=== PATIENT | female | born 1970 | race African-American/Black ===

== ENCOUNTER 2016-04-09 17:19 | Emergency (ER) | payer OTHER ==
[~2016-04-09] VITALS: Ht 170.2 cm; Wt 131.1 kg
[2016-04-09 19:38] LABS: PLATELET COUNT 285 K/uL (152-353)
[2016-04-09 19:40] LABS: POTASSIUM 3.8 mmol/L (3.6-5.2); SODIUM 137 mmol/L (136-145)
[2016-04-09 20:30] VITALS: BP 148/88; TEMP 98.1
== END 2016-04-09 20:31 | disposition home or self-care (01) ==
LOC: ED 17:19
PROVIDERS: Specialist
DX: R10.11 Right upper quadrant pain (principal)
CPT/HCPCS: 36415; 80053; 82150; 83690; 85027; 99283

== ENCOUNTER 2016-04-16 20:27 | Emergency (ER) | payer OTHER ==
[~2016-04-16] VITALS: Ht 170.2 cm; Wt 131.1 kg
[2016-04-16] MEDS ORDERED: TRAM50TA PO (20:52)
[2016-04-16] MEDS ORDERED: PROM25TA52 PO (20:53)
[2016-04-16 22:18] LABS: PLATELET COUNT 309 K/uL (152-353)
[2016-04-16 22:29] LABS: POTASSIUM 4.3 mmol/L (3.6-5.2); SODIUM 138 mmol/L (136-145)
[2016-04-17 00:18] VITALS: BP 140/60; TEMP 98.3
== END 2016-04-17 00:18 | disposition home or self-care (01) ==
LOC: ED 20:27
PROVIDERS: Emergency Medicine
DX: K29.00 Acute gastritis without bleeding (principal); B96.81 Helicobacter pylori [H. pylori] as the cause of diseases classified elsewhere
CPT/HCPCS: 80053; 81000; 82550; 83690; 84484; 85027; 86318; 96374; 96375; 99283; J2270; J2405

== ENCOUNTER 2016-10-12 10:59 | Observation (INO) | payer OTHER ==
[~2016-10-12] VITALS: Ht 170.2 cm; Wt 135.4 kg
[2016-10-12 10:45] VITALS: BP 174/88; TEMP 98
[~2016-10-12 10:59] MED LIST: PROM25TA52 PO; TRAM50TA PO
[2016-10-12 11:35] LABS: PLATELET COUNT 349 K/uL (152-353)
[2016-10-12 11:45] VITALS: BP 153/74
[2016-10-12 12:18] LABS: POTASSIUM 4.2 mmol/L (3.6-5.2); SODIUM 139 mmol/L (136-145)
[2016-10-12 12:23] LABS: PARTIAL THROMBOPLASTIN TIME 25.9 SECONDS (24.5-33.6)
[2016-10-12 12:54] VITALS: BP 172/67
[2016-10-12 13:45] VITALS: BP 154/56
[2016-10-12 17:59] VITALS: BP 185/87; TEMP 97.8; Ht 170.2 cm; Wt 135.4 kg
[2016-10-12 20:00] VITALS: BP 145/58; TEMP 98.2
[2016-10-13] VITALS: BP 138/78; TEMP 98.1
[2016-10-13 03:51] LABS: PLATELET COUNT 255 K/uL (152-353)
[2016-10-13 04:00] VITALS: BP 137/55; TEMP 97.8
[2016-10-13 04:10] LABS: POTASSIUM 3.9 mmol/L (3.6-5.2); SODIUM 141 mmol/L (136-145)
[2016-10-13 08:00] VITALS: BP 109/39; TEMP 98
[2016-10-13 12:00] VITALS: BP 111/57; TEMP 98
== END 2016-10-13 15:52 | disposition home or self-care (01) ==
LOC: ED 10:59 → MED/SURG 12:45
PROVIDERS: Internal Medicine
DX: R07.89 Other chest pain (principal); I10 Essential (primary) hypertension; Z72.0 Tobacco use; E66.8 Other obesity
CPT/HCPCS: 36415; 80053; 80307; 82550; 83735; 84443; 84484; 85027; 85610; 85730; 93005; 96372; 99220; 99284; G0378; G0479; J1650

== ENCOUNTER 2017-08-30 11:21 | Emergency (ER) | payer OTHER ==
[~2017-08-30] VITALS: Ht 170.2 cm; Wt 125.2 kg
[2017-08-30 11:27] VITALS: TEMP 98.1
[2017-08-30 11:54] LABS: PLATELET COUNT 267 K/uL (152-353)
[2017-08-30 12:05] LABS: POTASSIUM 3.6 mmol/L (3.6-5.2)
[2017-08-30 12:41] LABS: PARTIAL THROMBOPLASTIN TIME 26.5 SECONDS (24.5-33.6)
[2017-08-30 13:22] VITALS: BP 142/70
== END 2017-08-30 13:22 | disposition home or self-care (01) ==
LOC: ED 11:21
PROVIDERS: Emergency Medicine
DX: R07.89 Other chest pain (principal); I44.7 Left bundle-branch block, unspecified
CPT/HCPCS: 36415; 80053; 82550; 83880; 84484; 85027; 85610; 85730; 93005; 99284

== ENCOUNTER 2018-10-06 23:21 | Emergency (ER) | payer OTHER ==
[~2018-10-06] VITALS: Ht 170.2 cm; Wt 129.7 kg
[2018-10-06 23:55] LABS: PLATELET COUNT 259 K/uL (152-353)
[2018-10-07 00:02] LABS: POTASSIUM 3.8 mmol/L (3.6-5.2); SODIUM 143 mmol/L (136-145)
[2018-10-07 00:22] LABS: PARTIAL THROMBOPLASTIN TIME 24.6 SECONDS (24.5-33.6)
[2018-10-07 01:55] VITALS: BP 140/72; TEMP 98.1
== END 2018-10-07 01:55 | disposition short-term general hospital (02) ==
LOC: ED 23:21
PROVIDERS: Emergency Medicine
DX: R07.89 Other chest pain (principal); I24.9 Acute ischemic heart disease, unspecified; I44.7 Left bundle-branch block, unspecified
CPT/HCPCS: 80053; 82150; 83690; 83735; 83880; 84484; 85027; 85379; 85610; 85730; 93005; 96365; 96366; 96375; 99285; J1644; J3490

== ENCOUNTER 2019-02-14 10:52 | Observation (INO) | payer OTHER ==
[~2019-02-14] VITALS: Ht 170.2 cm; Wt 142.1 kg
[2019-02-14] VITALS (7 sets, daily range): BP systolic 117–160; BP diastolic 38–76; TEMP 97.6–99; Ht 170.2 cm; Wt 142.1 kg
[2019-02-14] MEDS ORDERED: PRINIVIL5 MG PO (11:19)
[2019-02-14 11:52] LABS: PLATELET COUNT 286 K/uL (152-353)
[2019-02-14 12:07] LABS: POTASSIUM 4.1 mmol/L (3.6-5.2); SODIUM 141 mmol/L (136-145)
[2019-02-15] VITALS: BP 110/40; TEMP 98.2
[2019-02-15 03:57] VITALS: BP 116/48; TEMP 98.5
[2019-02-15 08:00] VITALS: BP 128/57; TEMP 98
[2019-02-15] MEDS ORDERED: BUPR150T PO (11:48)
[2019-02-15] MEDS ORDERED: LISI5TAB10 PO (11:49)
[2019-02-15 12:00] VITALS: BP 126/48; TEMP 98.1
--- NOTE | 2019-02-15 13:35 | NUR ---
PATIENT GIVEN DISCHARGE INSTRUCTIONS WITH VERBAL UNDERSTANDING NOTED. PATIENT IV DISCONTINUED TO THE RIGHT AC WITH TIP INTACT. PATIENT INSTRUCTED THAT PATIENT INSTRUCTED THAT HER RX WERE SENT TO [facility]- [facility]. PATIENT AMBULATED TO POV WITHOUT DIFFICULTY. PATIENT LEFT IN NO ACUTE DISTRESS.
== END 2019-02-15 13:35 | disposition home or self-care (01) ==
LOC: ED 10:52 → MED/SURG 14:10
PROVIDERS: ADMIT Emergency Medicine
DX: R07.89 Other chest pain (principal); I44.7 Left bundle-branch block, unspecified; E66.8 Other obesity; Z68.42 Body mass index [BMI] 45.0-49.9, adult; I25.10 Atherosclerotic heart disease of native coronary artery without angina pectoris; I10 Essential (primary) hypertension
CPT/HCPCS: 36415; 36416; 80053; 82150; 82550; 83690; 84484; 85027; 93005; 96374; 99220; 99284; G0378; J1885